=== PATIENT | female | born 1955 | race Caucasian/White ===

== ENCOUNTER 2017-04-15 16:20 | Outpatient (CLI) | payer OTHER ==
--- NOTE | 2017-04-15 17:28 | RAD ---
RIGHT RIBS 04/15/17 Multiple views show no apparent fracture. Subtle fractures could be missed due to slight osteopenia. The adjacent lung is clear and fully inflated. No infiltrate or effusion was seen. Degenerative savita nges are noted in the right shoulder joint. IMPRESSION: No acute findings in the ribs. POS: HOME
== END 2017-04-15 16:21 | disposition home or self-care (01) ==
LOC: BURRAD 16:20
PROVIDERS: ATTEND Family Medicine
DX: R07.81 Pleurodynia (principal)

== ENCOUNTER 2017-05-06 12:14 | Emergency (ER) | payer OTHER ==
[2017-05-06] MEDS ORDERED: Lisinopril 5 MG TAB ONE (12:42)
[2017-05-06 12:51] LABS: #Basophils 0.1 thou/uL (0.0-0.2); #Eosinphils 0.2 thou/uL (0.0-0.7); #Lymphocytes 1.9 thou/uL (1.20-3.40); #Monocytes 0.7 thou/uL (0.11-0.59); #Neutrophils 8.2 thou/uL (1.40-6.50); %Basophils 0.6 % (0.0-1.0); %Eosinophils 1.4 % (0.0-10.0); %Lymphocytes 17.2 % (21.0-51.0); %Monocytes 6.2 % (0.0-10.0); %Neutrophils 74.7 % (42.0-75.0); Hemoglobin 14.9 g/dL (12.0-16.0); Mean Corpuscular HGB CONC 33.2 g/dL (32.0-36.0); Mean Corpuscular Hemoglobin 30.3 pg (27.0-31.0); Mean Corpuscular Volume 91.2 fl (81.0-99.0); Mean Platelet Volume 9.4 fL (7.4-10.4); Platelet Count 185 thou/uL (130-400); RBC Distribution Width 11.8 % (11.5-14.5); Red Blood Cell (RBC) Count 4.93 mill/uL (4.20-5.40); White Blood Cell (WBC) Count 10.9 thou/uL (4.8-10.8)
[2017-05-06 13:09] LABS: Anion Gap 14 mmol/L (10-20); BUN (Urea Nitrogen) 15 mg/dL (9.8-20.1); Calc. Creatinine Clearance 0 mL/min (70-130); Calcium 9.3 mg/dL (7.8-10.44); Carbon Dioxide 25 mmol/L (23-31); Chloride 106 mmol/L (98-107); Estimated GFR-MDRD 89; Glucose 108 mg/dL (80-115); Sodium 141 mmol/L (136-145); Uric Acid 5.3 mg/dL (2.6-6.0)
--- NOTE | 2017-05-06 20:35 | RAD ---
LEFT ANKLE THREE VIEWS 05/06/17 Soft tissue swelling is seen around the ankle. There is bony spurring at the tip of each malleolus th at appears old. I cannot define any acute fracture. There is some slight joint space narrowing of the ankle joint itself. A calcaneal spur is present as well as ossification at the insertion of the Achi lles tendon. IMPRESSION: Soft tissue swelling and chronic bony changes, but no acute finding. POS: HOME
== END 2017-05-06 13:41 | disposition home or self-care (01) ==
LOC: BURERS 12:14
DX: M19.072 Primary osteoarthritis, left ankle and foot (principal); E78.5 Hyperlipidemia, unspecified; I10 Essential (primary) hypertension; F32.9 Major depressive disorder, single episode, unspecified; Z79.899 Other long term (current) drug therapy; Z86.73 Personal history of transient ischemic attack (TIA), and cerebral infarction without residual deficits; Z79.02 Long term (current) use of antithrombotics/antiplatelets
CPT/HCPCS: 80048; 84550; 85025